=== PATIENT | female | born 1985 | race African-American/Black ===

== ENCOUNTER 2019-12-08 07:29 | Day surgery (SDC) | payer BC ==
[~2019-12-08] VITALS: Ht 172.7 cm; Wt 121.8 kg
[2019-12-08] VITALS (9 sets, daily range): BP systolic 116–131; BP diastolic 64–81; PULSE 69–88; TEMP 98.5–99
[~2019-12-08 07:29] MED LIST: ALDACTONE50 MG PO; CAMILA0.35 MG PO; CEPHALEXIN500 M1 PO; DOXYCYCLINE 10100 MG PO; GLUCOPHAGE500 MG/TAB PO; LEVAQUIN 5500 MG/TA1 PO; LORTAB 5/500 501 TAB PO; ORTHO TRI-CYCLE1 TAB PO; PERCOCET 325 MG1 TA2 PO; ZOFRAN 4MG T4 MG/TAB PO
[2019-12-08] MEDS ORDERED: ULTRAM 50MG TAB50 MG PO (08:38)
[2019-12-08] MEDS ORDERED: OTEZLA PO (09:03)
[2019-12-08] MEDS ORDERED: HUMIRA40 MG/0.4 SQ (09:03)
== END 2019-12-08 14:13 | disposition home or self-care (01) ==
LOC: SDCO 07:29
DX: K80.10 Calculus of gallbladder with chronic cholecystitis without obstruction (principal); L73.2 Hidradenitis suppurativa; Z20.828 Contact with and (suspected) exposure to other viral communicable diseases; Z79.899 Other long term (current) drug therapy
CPT/HCPCS: J0690; J1100; J1885; J2250; J2405; J2550; J2704; J3010

== ENCOUNTER → 2020-12-08 | Outpatient (CLI) | payer BC ==
[~2020-12-08] MED LIST changes: +HUMIRA40 MG/0.4 SQ; +OTEZLA PO; +ULTRAM 50MG TAB50 MG PO
== END ==
LOC: MC.RAD 07:00
DX: N63.20 Unspecified lump in the left breast, unspecified quadrant (principal); Z98.890 Other specified postprocedural states

== ENCOUNTER → 2021-07-16 | Outpatient (CLI) | payer BC | LOC: MC.RAD 10:47 | DX: N60.02 Solitary cyst of left breast (principal) ==

== ENCOUNTER 2023-03-26 21:24 | Emergency (ER) | payer BC ==
[~2023-03-26] VITALS: Ht 172.7 cm; Wt 131.4 kg
[2023-03-26 21:37] VITALS: TEMP 98.8
[2023-03-26 21:51] LABS: COLLECTION METHOD CLEAN CATCH
[2023-03-26 21:59] LABS: BASO % 0.4 % (0.0-2.0); EOS # 0.1 K/mm3 (0.0-0.7); EOS % 0.9 % (0.0-4.0); GRAN # 2.9 K/mm3 (1.4-6.5); GRAN % 36.5 % (42.2-75.2); HEMATOCRIT 38.7 % (37.0-47.0); HEMOGLOBIN 13.2 g/dl (12.5-16.0); LYMPH # 4.1 K/mm3 (1.2-3.4); LYMPH % 51.6 % (20.0-51.0); MEAN CELL VOLUME 85 fl (80.0-100.0); MEAN CORPUSCULAR HEMOGLOBIN 29 pg (27-31); MEAN CORPUSCULAR HGB CONC 34 g/dl (33.0-37.0); MEAN PLATELET VOLUME 8.7 fl (7.4-10.4); MONO # 0.8 K/mm3 (0.1-0.6); MONO % 10.5 % (1.7-9.3); PLATELET COUNT 319 K/mm3 (130-400); RED BLOOD COUNT 4.57 M/mm3 (4.10-5.30); REDCELL DISTRIBUTION WIDTH-CV 12.8 % (11.5-14.5)
[2023-03-26 22:06] LABS: URINE APPEARANCE Hazy (CLEAR/HAZY); URINE COLOR Yellow (YELLOW)
[2023-03-26 22:07] LABS: PH 6.5 (5.0-8.5); URINE BACTERIA Moderate /hpf (NONE SEEN); URINE BLOOD Negative (NEGATIVE); URINE GLUCOSE Negative (NEGATIVE); URINE KETONE Negative (NEGATIVE); URINE NITRATE Negative (NEGATIVE); URINE PROTEIN(semi-quant) Negative (NEGATIVE); URINE UROBILINOGEN 0.2 E.U/dL (0.2-1.0)
[2023-03-26] MEDS ORDERED: Famotidine 20 MG TAB PO ONE (22:30)
[2023-03-26] MEDS ORDERED: Mag/Al Hydrox/Simeth Susp 30 ML CUP PO ONE (22:30)
[2023-03-26 22:55] LABS: ALBUMIN 3.6 gm/dL (3.5-5.0); BILIRUBIN,TOTAL 0.9 mg/dL (0.2-1.2); C-REACTIVE PROTEIN 0.43 mg/dL (0.00-0.50); CALCIUM 8.7 mg/dL (8.4-10.2); CREATININE, serum 0.81 mg/dL (0.57-1.11); POTASSIUM 3.6 mmol/L (3.5-4.5); TOTAL PROTEIN 8.3 gm/dL (6.2-8.1)
[2023-03-26] MEDS ORDERED: PROTONIX 40MG T40 MG PO (23:18)
[2023-03-26 23:28] VITALS: BP 124/76; PULSE 70
== END 2023-03-26 23:29 | disposition home or self-care (01) ==
LOC: COL.ER 21:24
PROVIDERS: Nurse Practitioner Primary Care
DX: R10.13 Epigastric pain (principal)